=== PATIENT | male | born 1945 | race Caucasian/White ===

== ENCOUNTER → 2020-12-10 09:33 | Outpatient (CLI) | payer MEDICARE, OTHER ==
--- NOTE | ~2020-12-10 | ST ---
PATIENT:YUNIOR LOBO MEDICAL RECORD: [id number] SEX: M LOCATION:[facility] ORDER #: ADMISSION DATE: 12/10/20 AGE OF PATIENT: 75 REFERRING PHYSICIAN: INTERPRETING PHYSICIAN: DAYNA YEPEZ MD DATE OF SERVICE: 12/10/2020 NUCLEAR STRESS TEST GATED: Gated is normal with normal wall motion. Normal EF. Calculated EF 69%. SPECT IMAGING: SPECT imaging was performed. FINDINGS: Short axis view: Short axis view shows good uptake along the anterior wall, lateral wall, and inferior wall. Horizontal axis: Horizontal axis confirms good uptake along the anterior wall and inferior wall. Vertical axis: Vertical axis shows good uptake along the lateral wall and septum. FINAL IMPRESSION: 1. Normal gated with normal wall motion and EF. Calculated EF 69% 2. Normal SPECT imaging. This scan is felt to be low risk for any significant myocardial ischemia or previous myocardial infarction. LV function remains normal. TRANSINT:[id number] Voice Confirmation ID: [id number] DOCUMENT ID: [id number] DAYNA YEPEZ MD CC: [id number] DICTATION DATE: 12/10/20 1638 RESEARCH ASSOCIATE PROFESSOR: 12/11/20 0836 DEP CLI 12/10/20 [place] [id number] [place] [id number]
== END | disposition home or self-care (01) ==
LOC: D.HCCARDIO 09:33
PROVIDERS: ATTEND Internal Medicine Interventional Cardiology
DX: R07.9 Chest pain, unspecified (principal)